=== PATIENT | female | born 1985 | race Caucasian/White ===

== ENCOUNTER → 2017-11-24 13:03 | Outpatient (CLI) | payer SELFPAY ==
[2017-11-30 15:53] LABS: HPV Reflexed? NOT INDICATED
== END ==
PROVIDERS: Visit Provider Obstetrics & Gynecology
DX: Z12.4 Encounter for screening for malignant neoplasm of cervix (principal)
CPT/HCPCS: 88175; G0145

== ENCOUNTER → 2020-10-18 14:29 | Outpatient (CLI) | payer SELFPAY ==
--- NOTE | 2020-10-18 14:34 | US_ITS ---
STUDY: ULTRASOUND BREAST - RIGHT REASON FOR EXAM: Female, 34 years old. Palpable lump in the right breast. TECHNIQUE: Axial and longitudinal images of the RIGHT breast were performed with a high resolution ultrasound transducer. # OF IMAGES: 37 COMPARISON: Comparison is made with prior mammogram done earlier today. FINDINGS: RIGHT Breast: The palpable abnormality corresponds to a 1 cm x 1.2 cm x 0.6 cm cyst with minimal internal echoes deep in the medial inferior aspect of the right breast. This suggests deep to the subcutaneous tissues. There is increased blood flow in the periphery. Aspiration is recommended. US/Breast Limited Unilateral IMPRESSION: 1 cm x 1.2 cm x 0.6 cm complex cystic structure with minimal internal echoes along the inferior medial aspect of the right breast superficially. Aspiration is recommended. ASSESSMENT CATEGORY: BIRADS Category 4: Suspicious - Biopsy Should Be Considered. A letter regarding these results will be sent to the patient by the facility within 30 days. Electronically Signed: Saulo Bass, at 15:41 EST , Service support ,
--- NOTE | 2020-10-18 14:34 | BI_ITS ---
MAMMOGRAPHY - BILATERAL DIAGNOSTIC REASON FOR EXAM: Female, 34 years old. Deep right medial lump. PERTINENT HISTORY: Grandmother with breast cancer. Remote right excisional breast biopsy. TECHNIQUE: Digital bilateral breast wilton (3D mammographic acquisition) in the CC and MLO projections. 2-D mediolateral oblique (MLO) and craniocaudad (CC) views of both breasts were obtained. CAD: Full Field Digital Mammography with Computer Added Detection was performed. COMPARISON: Comparison is made with prior study dated 08/13/2017. FINDINGS: Breast Composition: The breasts are extremely dense, which lowers the sensitivity of mammography. There are no dominant masses or suspicious calcifications. No other significant abnormalities are identified. There has been no significant change since the prior study. BI/DIAG MAMM W/CAD, BILAT IMPRESSION: Stable bilateral diagnostic mammogram. With the patient''s history of a deep right medial breast lump, correlation with ultrasound is recommended. ASSESSMENT CATEGORY: BIRADS Category 0: Incomplete. Need additional imaging evaluation. A letter regarding these results will be sent to the patient by the facility within 30 days. Approximately 10% of breast cancers are not detected by mammography. A normal mammogram should not delay biopsy of a clinically suspicious abnormality. Electronically Signed: Saulo Bass, at 15:37 EST , Service support ,
== END ==
PROVIDERS: Referring Provider Obstetrics & Gynecology; Visit Provider Obstetrics & Gynecology
DX: N63.10 Unspecified lump in the right breast, unspecified quadrant (principal)
CPT/HCPCS: 76642; 77062; 77066; G0279

== ENCOUNTER → 2021-02-04 11:19 | Outpatient (CLI) | payer SELFPAY ==
[2020-10-23 08:47] VITALS: BMI 31.7
[2021-02-04 13:38] LABS: Hematocrit 41.2 % (37-47); Hemoglobin 14.3 g/dL (12.0-15.0); Mean Corp Hgb Conc 34.7 g/dL (32-36); Mean Corpuscular Hgb 32.2 pg (27.0-32.0); Mean Corpuscular Volume 92.8 fL (81-99); Mean Platelet Vol. 9.8 fl (6.2-12.0); Platelet Count 290 K/mm3 (150-450); RBC Distribution Width SD 41.2 fl (35.1-43.9); Red Blood Count 4.44 M/mm3 (4.2-5.4); White Blood Count 6.3 K/mm3 (4.4-11.0)
[2021-02-04 13:48] LABS: hCG Titer Quant., Serum < 1 mIU/mL (1-3)
[2021-02-04 17:17] LABS: Anion Gap 6 (5-15); BUN 9 mg/dL (7-18); BUN/Creat Ratio 11.9 RATIO (10-20); Calcium,Total 9.6 mg/dL (8.5-10.1); Chloride 104 mmol/L (98-107); Creatinine, Serum 0.76 mg/dL (0.55-1.02); EST Glomerular Filtration Rate 92 mL/min (>60); Est Glom Filt Rate - Afr Amer 111 mL/min (>60); Follicle Stimulating Hormone 11.5 mIU/mL; Glucose 82 mg/dL (74-106); Luteinizing Hormone 18.9 mIU/mL; Potassium 3.8 mmol/L (3.5-5.1); Prolactin 12.7 ng/mL; Sodium Level 136 mmol/L (136-145); T4 Free Direct 1.01 ng/dL (0.76-1.46); Thyroid Stim Hormone (TSH) 2.49 uIU/mL (0.358-3.74)
[2021-02-06 15:37] LABS: HPV APTIMA, High Risk Negative (Negative)
[2021-02-08 16:05] LABS: Testosterone Free 1.3 pg/mL (0.0-4.2)
== END ==
PROVIDERS: Visit Provider Obstetrics & Gynecology
DX: N92.6 Irregular menstruation, unspecified (principal); Z12.4 Encounter for screening for malignant neoplasm of cervix
CPT/HCPCS: 36415; 80048; 82627; 83001; 83002; 84146; 84402; 84439; 84443; 84702; 85027; 87624; 88175; 82626; G0145